=== PATIENT | male | born 1965 | race Two or more races ===

== ENCOUNTER 2023-06-01 10:26 | Emergency (ER) | payer MEDICAID ==
[~2023-06-01] VITALS: Ht 177.8 cm; Wt 84.1 kg
[2023-06-01 10:48] VITALS: TEMP 98
[2023-06-01] MEDS ORDERED: ALBU18HF12 IH (10:52)
[2023-06-01] MEDS ORDERED: METF-1211 PO (10:52)
[2023-06-01] MEDS: PERTUSS(ACELL),DIPH,TET/PF 0.5 ML SYRINGE [ADULT] IM. ONE (11:26)
[2023-06-01] MEDS: LIDOCAINE 1% 10 ML VIAL ID ONE (13:08)
[2023-06-01 14:52] VITALS: BP 127/87; PULSE 84; RESP 18
[2023-06-01] MEDS: BACITRACIN 0.9 GM PACKET OINTMENT TP ONE (15:15)
[2023-06-01] MEDS ORDERED: HYDR-4723 PO (15:28)
[2023-06-01] MEDS ORDERED: CEPH-558 PO (15:28)
[2023-06-01] MEDS: CEPHALEXIN MONOHYDRATE 500 MG CAPSULE PO ONE (15:35)
[2023-06-01 19:56] LABS: GLUCOMETER DEV NAME(LOC) ERT.5; GLUCOSE,POINT OF CARE 114 MG/DL (70-110)
== END 2023-06-01 15:56 | disposition home or self-care (01) ==
LOC: EMS 10:27
DX: S02.2XXA Fracture of nasal bones, initial encounter for closed fracture (principal); S01.81XA Laceration without foreign body of other part of head, initial encounter; S01.21XA Laceration without foreign body of nose, initial encounter; X58.XXXA Exposure to other specified factors, initial encounter; Y93.89 Activity, other specified; Y92.89 Other specified places as the place of occurrence of the external cause; Y99.8 Other external cause status
CPT/HCPCS: 99285; 70486; 82962; 90715; 90471; 12013; J3490